=== PATIENT | male | born 1980 | race Hispanic/Latino ===

== ENCOUNTER → 2018-12-21 | Outpatient (CLI) | payer OTHER ==
--- NOTE | 2018-12-21 14:35 | Diagnostic Imaging Report ---
TECHNIQUE: Magnetic resonance imaging of the RIGHT SHOULDER was performed WITHOUT injected contrast. Internal rotation of the humeral head partially limits the evaluation. HISTORY: Strain, pain, weakness, worse in the last couple months COMPARISON: None available. FINDINGS: MUSCLES AND TENDONS: Rotator Cuff: Tendons: Supraspinatus and Infraspinatus: Intact Teres Minor: Intact Subscapularis: Intact Muscles: No focal muscle atrophy. Biceps Tendon: The long head of the biceps tendon is intact and within the intertubercular groove. GLENOHUMERAL JOINT: Glenoid Labrum: Limited evaluation of the labrum, but the anteroinferior and inferior labrum appear irregular with mild attenuation. Articular Cartilage: Mild thinning and irregularity at the anteroinferior glenoid. Joint Fluid: No effusion. ACROMIOCLAVICULAR JOINT: Moderate hypertrophic degenerative changes of the acromioclavicular joint. Synovitis without an effusion. BONE: Prominent subchondral bone marrow edema involving the distal clavicle greater than the adjacent acromium, an irregular linear hypointensity within the distal clavicle may reflect a late subacute to chronic fracture deformity.. The bone marrow signal is heterogeneous, compatible with red marrow conversion, no specific evidence of a focal bone marrow replacing abnormality. No acute fracture. SOFT TISSUES: Otherwise, unremarkable. IMPRESSION: 1. Moderate osteoarthritis of the acromioclavicular joint with associated prominent bone marrow edema of the adjacent clavicle greater than the adjacent acromium. A late subacute to chronic fracture deformity of the distal clavicle is a consideration. 2. 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 Signed by: Dr. Philip Toney D.O., M.M.M. on 12/21/2018 2:32 PM
== END ==
LOC: MRI 13:28
PROVIDERS: ATTEND Family Medicine
DX: S46.911A Strain of unspecified muscle, fascia and tendon at shoulder and upper arm level, right arm, initial encounter (principal)

== ENCOUNTER → 2021-04-23 | Outpatient (CLI) | payer OTHER | LOC: US 09:27 | PROVIDERS: ATTEND Family Medicine | DX: R10.9 Unspecified abdominal pain (principal) | CPT/HCPCS: 76700 ==

== ENCOUNTER → 2021-06-22 | Outpatient (CLI) | payer OTHER ==
[~2021-06-22] MED LIST: IOPAMIDOL 370 MG/ML 200 ML INFUS..BTL INJ ONE; SODIUM CHLORIDE 0.9% 50ML 50 ML ONE
== END ==
LOC: CT 14:44
PROVIDERS: ATTEND Family Medicine
DX: E11.65 Type 2 diabetes mellitus with hyperglycemia (principal); R10.11 Right upper quadrant pain; K80.80 Other cholelithiasis without obstruction
CPT/HCPCS: 74177; Q9967